=== PATIENT | female | born 2005 | race Caucasian/White ===

== ENCOUNTER 2024-12-17 02:04 | Emergency (ER) | payer OTHER ==
[~2024-12-17] VITALS: Ht 172.7 cm; Wt 59.0 kg
[2024-12-17 02:18] VITALS: TEMP 36.8; O2SAT 99
[2024-12-17 04:18] VITALS: BP 105/74; PULSE 96; RESP 18; O2SAT 99
== END 2024-12-17 04:33 | disposition home or self-care (01) ==
LOC: ER 02:04
DX: S93.401A Sprain of unspecified ligament of right ankle, initial encounter (principal); W10.9XXA Fall (on) (from) unspecified stairs and steps, initial encounter; Y93.01 Activity, walking, marching and hiking; Y92.89 Other specified places as the place of occurrence of the external cause; Y99.8 Other external cause status
CPT/HCPCS: 73610; 99283